=== PATIENT | female | born 1975 | race Caucasian/White ===

== ENCOUNTER 2024-07-12 19:32 | Emergency (ER) | payer OTHER ==
[~2024-07-12] VITALS: Ht 159.5 cm; Wt 62.1 kg
[2024-07-12 19:54] VITALS: BP 140/75; PULSE 53; RESP 25; TEMP 97.7; O2SAT 99
--- NOTE | 2024-07-12 20:20 | NUR ---
PT RECEIVED. C/O PAIN RIGHT SIDE, STARTS AT BACK, RADIATES TO ABDOMEN X 24 HOURS, TOOK ACETAMINOPHEN. EXPERIENCING NAUSEA WHIOLE DAY, UNABLE TO EAT, PAIN MAKING IT HARD TO BREATH. PAIN IS WORSE WEHN STANDING. DAUGHTER AT BEDSIDE PMHX NONE ALLERGIES TRAMADOL
--- NOTE | 2024-07-12 20:20 | NUR ---
PT SPOKE WITH QA CONSULTANT SABIHA TRIVEDI. C/O BACK PAIN THAT MOVES TO HER BREAST PT REPORTT PAIN IS "VERY STRONG" 08/19. PT REPORT SHE TOOK ACETAMINOPHE AT 12 TODAY WITH NO RELIEF. PT REPORT VOMITING STARTED LAST NIGHT AND CANNOT EAT PT REPORT TRAMADOL CAUSED TACHYCARDIA WHEN PREVIOUSLY TAKEN PMH DENIED ALLERGIES TRAMADOL
--- NOTE | 2024-07-12 21:01 | NUR ---
[facility]
[2024-07-12 21:06] LABS: BASOPHILS % (AUTO) 0.3 % (0.0-2.0); EOSINOPHILS % (AUTO) 0.5 % (0.0-4.0); HEMATOCRIT 43.1 % (36-48); HEMOGLOBIN 14.7 g/dL (12.0-16.0); LYMPHOCYTES # (AUTO) 2.9 K/uL (2.5-16.5); LYMPHOCYTES % (AUTO) 36.6 % (20.5-51.1); MEAN CORPUSCULAR HEMOGLOBIN 32 pg (27-31); MEAN CORPUSCULAR HGB CONC 34 g/dL (33-37); MEAN CORPUSCULAR VOLUME 92.9 fL (80-94); MONOCYTES # (AUTO) 0.6 K/uL (0.8-1.0); MONOCYTES % (AUTO) 7.1 % (1.7-9.3); NEUTROPHILS # (AUTO) 4.4 K/uL (1.8-7.7); NEUTROPHILS % (AUTO) 55.5 % (42.2-75.2); PLATELET COUNT (AUTO) 276 K/uL (140-450); RED BLOOD CELL COUNT(AUTO) 4.63 MIL/uL (4.20-5.40); RED CELL DISTRIBUTION WIDTH 13.7 % (11.6-13.7); WHITE BLOOD COUNT (AUTO) 7.9 K/uL (4.8-10.8)
--- NOTE | 2024-07-12 21:10 | NUR ---
PT RETURN FROM CT
[2024-07-12 21:16] LABS: ANION GAP 14.9 (8-16); CALCIUM 10.1 mg/dL (8.5-10.1); CARBON DIOXIDE 23.9 mmol/L (21-32); CREATININE 0.9 mg/dL (0.6-1.3); POTASSIUM 3.8 mmol/L (3.5-5.1)
[2024-07-12 21:20] LABS: ALBUMIN 3.8 g/dL (3.4-5.0); BILIRUBIN,DIRECT 0.1 mg/dL (0.0-0.3); TOTAL BILIRUBIN 0.4 mg/dL (0.0-1.0); TOTAL PROTEIN, SERUM 7.6 g/dL (6.4-8.2)
[2024-07-12 21:36] LABS: APPEARANCE,URINE CLEAR (CLEAR); BILIRUBIN,URINE NEGATIVE (NEGATIVE); BLOOD, URINE NEGATIVE (NEGATIVE); COLOR,URINE YELLOW (YELLOW); LEUKOCYTE ESTERASE ,URINE NEGATIVE (NEGATIVE); NITRITE, URINE NEGATIVE (NEGATIVE); PROTEIN,URINE NEGATIVE (NEGATIVE); UGLUCOSE NEGATIVE (NEGATIVE); UROBILINOGEN,URINE 0.2 EU/dL (0.2 - 1)
[2024-07-12] MEDS ORDERED: KETOROLAC 30 MG/ML VIAL ONE (21:50)
[2024-07-12] MEDS ORDERED: ONDANSETRON 4 MG/2 ML VIAL ONE (21:50)
[2024-07-12] MEDS: ONDANSETRON 4 MG/2 ML VIAL IVP ONE (21:54)
[2024-07-12] MEDS: KETOROLAC 30 MG/ML VIAL IVP ONE (21:55)
[2024-07-12] MEDS: NACL 0.9% 1,000 ML IV ONE (21:55)
--- NOTE | 2024-07-12 22:26 | NUR ---
PT REPORT PAIN 8/10 WITH RELIEF FROM MEDICATION
[2024-07-12] MEDS ORDERED: ONDA-188 SL (23:01)
[2024-07-12] MEDS ORDERED: ACET500T99 PO (23:01)
[2024-07-12] MEDS ORDERED: IBUP-2213 PO (23:01)
--- NOTE | 2024-07-12 23:15 | NUR ---
pt report pain of 3/10 with relief from medication, pt educated on dc paperwork with use of plush cutter and verbalized understanding of medictions prescribed and dietary guidelines.
--- NOTE | 2024-07-12 23:19 | NUR ---
Patient discharged with v/s stable. Written and verbal after care instructions given and explained. Patient alert, oriented and verbalized understanding of instructions. Ambulatory with steady gait. All questions addressed prior to discharge. ID band removed. Patient advised to follow up with PMD. Rx of acetaminophen, ibuprofen, ondansetron given. Patient educated on indication of medication including possible reaction and side effects. Opportunity to ask questions provided and answered.
== END 2024-07-12 23:20 | disposition home or self-care (01) ==
LOC: MED 19:32
DX: R10.11 Right upper quadrant pain (principal); R11.2 Nausea with vomiting, unspecified; Z79.899 Other long term (current) drug therapy
CPT/HCPCS: 36415; 74176; 80048; 80076; 81003; 81025; 83690; 85025; 96361; 96374; 96375; 99285; J1885; J2405; J7030

== ENCOUNTER 2024-07-13 18:13 | Emergency (ER) | payer OTHER ==
[~2024-07-13] VITALS: Ht 162.6 cm; Wt 62.3 kg
[~2024-07-13 18:13] MED LIST: ACET500T99 PO; IBUP-2213 PO; ONDA-188 SL
[2024-07-13 18:51] VITALS: BP 130/83; PULSE 64; RESP 18; TEMP 97.5; O2SAT 100
[2024-07-13 19:20] VITALS: O2SAT 99
--- NOTE | 2024-07-13 19:20 | NUR ---
49YO F BIB SELF C.O R FLANK PAIN RADIATING TO R BREAST X 4 DAYS. PT STATES SHE WAS SEEN IN THIS ER YESTERDAY AND SENT HOME WITH PAIN MEDICATION. STATES PAIN LEVEL 7/10. VSS ON BEDSIDE MONITOR. CALL LIGHT WITHIN REACH. SAFETY MEASURES IN PLACE. ALLERGIES: TRAMADOL NO PMHX
[2024-07-13 19:50] LABS: BASOPHILS % (AUTO) 0.3 % (0.0-2.0); EOSINOPHILS # (AUTO) 0.1 K/uL (0-0.4); EOSINOPHILS % (AUTO) 1.9 % (0.0-4.0); HEMATOCRIT 45.5 % (36-48); HEMOGLOBIN 15.1 g/dL (12.0-16.0); LYMPHOCYTES # (AUTO) 2.5 K/uL (2.5-16.5); LYMPHOCYTES % (AUTO) 35.7 % (20.5-51.1); MEAN CORPUSCULAR HEMOGLOBIN 31 pg (27-31); MEAN CORPUSCULAR HGB CONC 33 g/dL (33-37); MEAN CORPUSCULAR VOLUME 93.6 fL (80-94); MONOCYTES # (AUTO) 0.5 K/uL (0.8-1.0); MONOCYTES % (AUTO) 6.7 % (1.7-9.3); NEUTROPHILS # (AUTO) 3.9 K/uL (1.8-7.7); NEUTROPHILS % (AUTO) 55.4 % (42.2-75.2); PLATELET COUNT (AUTO) 285 K/uL (140-450); RED BLOOD CELL COUNT(AUTO) 4.86 MIL/uL (4.20-5.40); RED CELL DISTRIBUTION WIDTH 13.5 % (11.6-13.7); WHITE BLOOD COUNT (AUTO) 7.1 K/uL (4.8-10.8)
[2024-07-13] MEDS: KETOROLAC 30 MG/ML VIAL IVP ONE (20:03)
[2024-07-13 20:25] LABS: ANION GAP 12.8 (8-16); CALCIUM 10.2 mg/dL (8.5-10.1); CARBON DIOXIDE 26.7 mmol/L (21-32); CREATININE 0.9 mg/dL (0.6-1.3); POTASSIUM 4.5 mmol/L (3.5-5.1)
[2024-07-13 20:30] LABS: ALBUMIN 3.9 g/dL (3.4-5.0); BILIRUBIN,DIRECT 0.1 mg/dL (0.0-0.3); TOTAL BILIRUBIN 0.6 mg/dL (0.0-1.0); TOTAL PROTEIN, SERUM 7.8 g/dL (6.4-8.2)
[2024-07-13 20:34] LABS: APPEARANCE,URINE CLEAR (CLEAR); BILIRUBIN,URINE NEGATIVE (NEGATIVE); BLOOD, URINE NEGATIVE (NEGATIVE); COLOR,URINE YELLOW (YELLOW); LEUKOCYTE ESTERASE ,URINE NEGATIVE (NEGATIVE); NITRITE, URINE NEGATIVE (NEGATIVE); PROTEIN,URINE NEGATIVE (NEGATIVE); UGLUCOSE NEGATIVE (NEGATIVE); UROBILINOGEN,URINE 0.2 EU/dL (0.2 - 1)
--- NOTE | 2024-07-13 21:05 | NUR ---
PT TO CT VIA WHEELCHAIR
--- NOTE | 2024-07-13 21:20 | NUR ---
PT RETURN FROM CT
--- NOTE | 2024-07-13 23:28 | NUR ---
PT RESTING IN BED WITH NO S.S PAIN OR DISTRESS. VSS ON BEDSIDE MONITOR. RESPIRATIONS EVEN AND UNLABORED. CALL LIGHT WITHIN REACH. SAFETY MEASURES IN PLACE.
[2024-07-14] MEDS: ACETAMINOPHEN EXTRA STRENGTH 500 MG TAB PO ONE
[2024-07-14] MEDS ORDERED: LIDO5CRE19 TP (01:21)
[2024-07-14] MEDS ORDERED: CYCL-711 PO (01:21)
[2024-07-14 01:28] VITALS: BP 111/63; PULSE 55; RESP 16; TEMP 98.2; O2SAT 98
--- NOTE | 2024-07-14 01:28 | NUR ---
Patient discharged with v/s stable. Written and verbal after care instructions given and explained. Patient verbalized understanding. Ambulatory with steady gait. All questions addressed prior to discharge. Advised to follow up with PMD.
== END 2024-07-14 01:28 | disposition home or self-care (01) ==
LOC: MED 18:13
DX: M62.830 Muscle spasm of back (principal); Z79.899 Other long term (current) drug therapy; Z88.5 Allergy status to narcotic agent
CPT/HCPCS: 36415; 71275; 74174; 80048; 80076; 81003; 83690; 85025; 96374; 99285; J1885; Q9967